=== PATIENT | male | born 1990 | race African-American/Black ===

== ENCOUNTER 2021-08-27 10:09 | Emergency (ER) | payer MEDICAID ==
[~2021-08-27] VITALS: Ht 182.9 cm; Wt 100.0 kg
[~2021-08-27 10:09] MED LIST: HYDR50TA4 PO
[2021-08-27 10:45] VITALS: BP 136/95
[2021-08-27] MEDS ORDERED: acetaminophen 325mg tablet PO ONE (11:00)
[2021-08-27] MEDS ORDERED: HYDROchlorothiazide 25mg tablet PO ONE (11:00)
[2021-08-27] MEDS ORDERED: HYDR12.55 PO (11:32)
== END 2021-08-27 11:55 | disposition home or self-care (01) ==
LOC: ER 10:09
DX: G44.229 Chronic tension-type headache, not intractable (principal); I10 Essential (primary) hypertension; Z79.899 Other long term (current) drug therapy
CPT/HCPCS: 99283